=== PATIENT | male | born 1955 | race Caucasian/White ===

== ENCOUNTER 2016-06-02 09:38 | Observation (INO) | payer BC ==
[~2016-06-02] VITALS: Ht 167.6 cm; Wt 76.1 kg
[~2016-06-02 09:38] MED LIST: ASPIRIN81 M1 PO; HYDROCHLOROTH12.5 M2 PO; NEXIUM40 MG PO; SIMVASTATIN20 MG PO; ZESTRIL,PRINIVI20 MG PO
[2016-06-02 10:35] LABS: BASOPHIL COUNT 0.1 K/uL (0-0.1); EOSINOPHIL COUNT 0.7 K/uL (0-0.3); HEMATOCRIT 47.1 % (38.0-50.0); IMMATURE GRANULOCYTE (%) 0.3 % (0.0-0.7); INSTRUMENT ABS NEUTROPHIL CT 6.5 K/uL; LYMPHOCYTE COUNT 1.9 K/uL (1.0-2.8); MCH 32.2 PG (29.0-34.0); MCHC 34.4 G/DL (30.0-36.0); MCV 93.6 FL (86-99); MEAN PLAT.VOLUME 9.5 uM^3 (9.0-12.4); MONOCYTE (%) 6.9 % (3-12); MONOCYTE COUNT 0.7 K/uL (0-0.8); NEUTROPHIL (%) 65.7 % (45-76); NEUTROPHIL COUNT 6.5 K/uL (1.8-6.4); PLATELET COUNT 395 K/uL (156-360); RBC DIS.WIDTH-CV 11.9 % (11.8-14.6); RBC DIS.WIDTH-SD 41.4 % (39-53); RED BLOOD COUNT 5.03 M/uL (4.00-5.50); WHITE BLOOD COUNT 9.9 K/uL (4.1-10.2)
[2016-06-02 10:44] LABS: PROTHROMBIN TIME 10.3 (9.2-11.2); PTT 28.9 (25-32)
[2016-06-02 10:45] LABS: CHLORIDE 104 mEq/L (99-109); POTASSIUM 4.4 mEq/L (3.7-5.4); SODIUM 139 mEq/L (136-147)
[2016-06-02 10:47] LABS: GLUCOSE 176 mg/dL (70-99)
[2016-06-02 10:48] LABS: ANION GAP 12 MEQ/L (2-14)
[2016-06-02 10:51] LABS: GFR ESTIMATE (CALCULATED) > 59 mL/min/
[2016-06-02 10:52] LABS: UREA NITROGEN (BUN) 11 mg/dL (9-23)
[2016-06-02 10:55] LABS: TROP-I INTERPRETATION NEGATIVE; TROPONIN-I < 0.01 ng/mL (0.0-0.30)
[2016-06-02] MEDS ORDERED: PRINIVIL20 MG PO (12:13)
[2016-06-02] MEDS ORDERED: HYDROCHLOROTH12.5 M3 PO (12:13)
[2016-06-02] MEDS ORDERED: LIPITOR40 MG PO (12:14)
[2016-06-02] MEDS ORDERED: INVOKANA300 MG PO (12:14)
[2016-06-02] MEDS ORDERED: ASPIR 8181 M1 PO (12:14)
[2016-06-02] MEDS ORDERED: OMEPRAZOLE40 M1 PO (12:15)
[2016-06-02] MEDS ORDERED: IMDUR30 MG PO (12:15)
[2016-06-02] MEDS ORDERED: GLIPIZIDE XL5 MG PO (12:15)
[2016-06-02] MEDS ORDERED: BREO ELLIPTA I1 EACH IH (12:16)
[2016-06-02] MEDS ORDERED: GABAPENTIN300 MG PO (12:16)
[2016-06-02] MEDS ORDERED: CARVEDILOL3.125 MG PO (14:27)
[2016-06-02] MEDS ORDERED: ANORO ELLIPTA1 EACH IH (14:27)
[2016-06-02] MEDS ORDERED: NITROSTAT0.4 MG SL (14:36)
[2016-06-02 15:43] VITALS: BP 112/71
[2016-06-02 17:08] LABS: TROP-I INTERPRETATION NEGATIVE; TROPONIN-I < 0.01 ng/mL (0.0-0.30)
[2016-06-02 19:07] VITALS: BP 98/58
[2016-06-02 23:57] LABS: TROP-I INTERPRETATION NEGATIVE; TROPONIN-I < 0.01 ng/mL (0.0-0.30)
[2016-06-03 00:15] VITALS: BP 104/68
[2016-06-03 04:43] VITALS: BP 94/53
[2016-06-03 07:31] LABS: POINT-OF-CARE METER ID UU13113831
[2016-06-03 09:38] VITALS: BP 124/68
[2016-06-03] MEDS ORDERED: NICOTINE PATCH1 EAC2 TD (11:01)
[2016-06-03 11:59] LABS: POINT-OF-CARE METER ID UU13113831
== END 2016-06-03 12:04 | disposition home or self-care (01) ==
LOC: EME → EDBD 09:38 → EME 09:38 → EDOF 11:30 → 5WEST 15:55
PROVIDERS: Emergency Medicine; Internal Medicine
DX: R07.89 Other chest pain (principal); E11.9 Type 2 diabetes mellitus without complications; I10 Essential (primary) hypertension; E78.5 Hyperlipidemia, unspecified; I25.2 Old myocardial infarction; Z86.73 Personal history of transient ischemic attack (TIA), and cerebral infarction without residual deficits; F17.200 Nicotine dependence, unspecified, uncomplicated
CPT/HCPCS: 71010; 80048; 82948; 83880; 84484; 85025; 85610; 85730; 93005; 99281; 99285; G0378; J1650; J1815